=== PATIENT | male | born 1975 | race Caucasian/White ===

== ENCOUNTER 2022-02-07 20:39 | Emergency (ER) | payer MEDICARE ==
[2022-02-08] MEDS ORDERED: PREDNISONE 20 M20 MG PO (00:54)
== END 2022-02-08 01:03 | disposition home or self-care (01) ==
LOC: ER1 20:39
DX: M79.672 Pain in left foot (principal); E78.5 Hyperlipidemia, unspecified; F17.210 Nicotine dependence, cigarettes, uncomplicated
CPT/HCPCS: 73630; 99283